=== PATIENT | female | born 1960 | race Caucasian/White ===

== ENCOUNTER 2025-02-07 08:02 | Day surgery (SDC) | payer MEDICARE, BC ==
[~2025-02-07 08:02] MED LIST: Sodium Chloride 0.9% 10 ML Syringe FLUSH PRN
[2025-02-07] MEDS ORDERED: Propofol 200 MG/20 ML SDV ONE (08:17)
[2025-02-07] MEDS ORDERED: Midazolam 1 MG/ML 2 ML SDV ONE (08:17)
[2025-02-07] MEDS: Lactated Ringers 1,000 ML IV SCH (08:33)
== END 2025-02-07 11:00 | disposition home or self-care (01) ==
LOC: KA.SDS 08:02
PROVIDERS: ATTEND Family Medicine
DX: Z12.11 Encounter for screening for malignant neoplasm of colon (principal); K63.5 Polyp of colon; K62.1 Rectal polyp; K64.8 Other hemorrhoids; G47.33 Obstructive sleep apnea (adult) (pediatric); E78.00 Pure hypercholesterolemia, unspecified; I10 Essential (primary) hypertension; Z86.0101 Personal history of adenomatous and serrated colon polyps; Z79.899 Other long term (current) drug therapy; Z87.891 Personal history of nicotine dependence
CPT/HCPCS: 00811; J2250; J2704; J7120

== ENCOUNTER 2025-03-17 11:32 | Emergency (ER) | payer MEDICARE, OTHER ==
[2025-03-17] MEDS: Ketorolac 30 MG/ML SDV IM ONE (12:28)
[2025-03-17] MEDS: methylPREDNISolone Sodium Succinate 125 MG/2 ML SDV IM ONE (12:29)
[2025-03-17] MEDS: Acetaminophen/oxyCODONE 325-5 MG Tab PO ONE (13:04)
== END 2025-03-17 13:10 | disposition home or self-care (01) ==
LOC: KA.ED 11:32
DX: M54.50 Low back pain, unspecified (principal); G89.29 Other chronic pain; I10 Essential (primary) hypertension; E78.00 Pure hypercholesterolemia, unspecified; E66.9 Obesity, unspecified; Z79.899 Other long term (current) drug therapy; Z68.31 Body mass index [BMI] 31.0-31.9, adult
CPT/HCPCS: 72100; 96372; 99283; A9270-GY; J1885; J2919